=== PATIENT | female | born 1975 | race Caucasian/White ===

== ENCOUNTER → 2017-02-13 | Outpatient (CLI) | payer BC, OTHER ==
[~2017-02-13] MED LIST: ADVI200C5 PO; LEVO2TA PO; STUACAP PO; TYLE167L PO; [UNRECOGNIZED DRUG - CODE] PO
--- NOTE | 2017-02-13 09:44 | REP ---
LEFT UPPER QUADRANT ULTRASOUND: Real-time sonographic evaluation of the left upper quadrant is performed. The spleen is normal in size and echotexture with no intrinsic abnormality. The spleen measures 9.4 x 8.3 x 3.2 cm. Left kidney measures 10.5 x 5.3 x 5.0 cm with no hydronephrosis. There is a possible calculus in the mid right kidney approximately 7 mm in diameter. IMPRESSION: Normal size of spleen with no splenomegaly. Suspect 7 mm calculus mid left kidney. Signed by Abiel Harmon MD 02/13/2017 03:25 P
== END ==
LOC: M RAD 06:59
PROVIDERS: ATTEND Family Medicine
DX: R10.10 Upper abdominal pain, unspecified (principal)

== ENCOUNTER → 2017-03-03 | Outpatient (REF) | payer OTHER | LOC: M SMT 12:36 | PROVIDERS: ATTEND Nurse Practitioner Family | DX: R31.9 Hematuria, unspecified (principal) ==

== ENCOUNTER → 2018-09-02 | Outpatient (REF) | payer OTHER | LOC: M LAB REF 13:50 | DX: Z12.4 Encounter for screening for malignant neoplasm of cervix (principal) ==

== ENCOUNTER → 2019-02-21 | Outpatient (REF) | LOC: M LAB 09:36 | PROVIDERS: ATTEND Nurse Practitioner Adult Health | DX: Z00.00 Encounter for general adult medical examination without abnormal findings (principal) ==

== ENCOUNTER 2019-06-01 15:27 | Emergency (ER) | payer BC, OTHER ==
[2019-06-01] MEDS ORDERED: VERA360C (15:39)
[2019-06-01] MEDS ORDERED: HYDR25TAB (15:39)
[2019-06-01] MEDS ORDERED: OMEP-218 (15:39)
[2019-06-01] MEDS ORDERED: BREO1INH3 (15:39)
[2019-06-01] MEDS ORDERED: LEVO175T2 (15:39)
[2019-06-01] MEDS ORDERED: ADACEL/BOOSTRIX VACCINE (DIPHTH/PERTUSS/ACELL/TETANUS)0.5ML SYR (90715) IM ONE (16:45)
[2019-06-01] MEDS ORDERED: LIDOCAINE W/EPINEPHRINE 1% 20ML VIAL SC ONE (16:45)
--- NOTE | 2019-06-01 17:46 | REP ---
Left knee: Four views. History: Trauma. Laceration on the medial side. Findings: The four views of the left knee are presented. No sunrise view is included. There is soft tissue deficit and irregularity consistent with a fairly large laceration a long the medial aspect of the upper calf just below the knee joint line. There is no opaque foreign body noted. No fracture is. No evidence of intra-articular gas. Impression: Soft tissue laceration injury. No fracture or opaque foreign body seen. Electronically Signed by Kyrie Strong MD 06/01/2019 06:15 P
[2019-06-01] MEDS ORDERED: KEFL500C17 PO (18:59)
[2019-06-01 20:38] VITALS: BP 132/70
== END 2019-06-01 20:39 | disposition home or self-care (01) ==
LOC: M ED 15:27 → EDBD 15:27 → M ED 20:39
DX: S81.012A Laceration without foreign body, left knee, initial encounter (principal); X58.XXXA Exposure to other specified factors, initial encounter; Y92.099 Unspecified place in other non-institutional residence as the place of occurrence of the external cause; Y93.89 Activity, other specified; Y99.9 Unspecified external cause status; Z79.899 Other long term (current) drug therapy; Z91.018 Allergy to other foods; Z91.013 Allergy to seafood

== ENCOUNTER → 2020-08-27 | Outpatient (REF) | payer OTHER, BC ==
[~2020-08-27] MED LIST changes: +BREO1INH3; +HYDR25TAB; +KEFL500C17 PO; +LEVO175T2; +OMEP-218; +VERA360C
== END ==
LOC: M LAB REF 16:23
PROVIDERS: ATTEND Physician Assistant
DX: N39.0 Urinary tract infection, site not specified (principal)

== ENCOUNTER → 2021-08-21 | Outpatient (CLI) | payer BC, OTHER ==
[~2021-08-21] MED LIST changes: +HYDR-3490; -HYDR25TAB; -LEVO175T2; +LEVO175T2 PO
== END ==
LOC: M LABSMTC 11:43
PROVIDERS: ATTEND Anesthesiology
DX: Z01.818 Encounter for other preprocedural examination (principal); Z11.52 Encounter for screening for COVID-19

== ENCOUNTER 2021-08-26 09:57 | Day surgery (SDC) | payer BC, OTHER ==
[~2021-08-26] VITALS: Ht 157.5 cm; Wt 80.3 kg
[~2021-08-26 09:57] MED LIST changes: +CYCLOPENTOLATE 1% OPHTH SOLN 2 ML BTL OS SCH; +FLURBIPROFEN 0.03% OPHTH SOLN 2.5 ML OS SCH; +LIDOCAINE 1% SDV 5ML VIAL As Ordered ONE; +LR 1,000 ML IV SCH; +PHENYLEPHRINE 2.5% OPHTH SOL 2ML OS SCH
--- OUTSIDE RECORDS SUMMARY | 2021-08-26 10:03 | CCD | Continuity of Care Document ---
Author Author Josephine URIBE M.D. Organization Unknown Address [address] [address] Phone [phone] Problems Active Problems Provider Date Benign essential hypertension Edgard Uribe M.D. Onset: 02/01/2014 Hypothyroidism Edgard Uribe M.D. Onset: 4 Asthma without status asthmaticus Edgard Uribe M.D. On set: 02/01/2014 Allergic rhinitis Edgard Uribe M.D. Onset: 4 Depressive disorder Edgard Uribe M.D. Onset: 4 Essential hypertension Edgard Uribe M.D. Onset: 2014 Social History Type Date Description Comments Sex Unknown ETOH Use Consumes 4 glasses of wine per w [place] Tobacco Use Start: Unknown End: Unknown Patient is a former smoker Recreational Drug Use Denies Drug Use Allergies and adverse reactions Active Allergies Criticality Reaction | Severity Comments Date Seasonal Unable to assess criticality 02/01/2014 Medications Active Medications SIG Qnty Indications Ordering Provide r Date Albuterol Sulfate HFA 108(90Base) mcg/Act Aerosol Inhale 2 Puffs By Mouth Four Times A Day as Needed 8.5units Edgard Uribe M.D. 10/29/2020 Triamcinolone Acetonide 0.5% Cream apply to the low back twice a day x 10 days 45gm Edgard Uribe M.D. 08/03/2020 Levothyroxine Sodium 150mcg Tablet s take one tablet by mouth qd 90tabs Edgard Uribe M.D. 1 12/08/[address] Take One Capsule By Mouth Every Morning 90caps Edgard Uribe M.D. 02/09/2019 Hydrochlorothiazide 25mg Tablets Take One Tablet By Mouth Every Day 30tabs Rony, Edgard H, M.D . 01/10/2019 Verapamil HCL ER 360mg Caps ER 24H R Take One Capsule By Mouth Every Day 30Edgard Turk M.D. 03/09/2018 Breo Ellipta 200-25mcg/Inh Aerosol Inhale One puff By Mouth Every Day 60unEdgard Iglesias M .D. 01/27/2017 Albuterol Sulfate (2 .5mg/3ML) 0.083% Nebulizer Inhale 1 Vial Every 4 Hours as Needed By Nebulizer 75unEdgard Iglesias M.D. 11/19/2016 Clobetasol Propionate 0.05% Cream Apply To Both Hands Lightly Two Times A Day 45Tracy Teran M.D. 10/01/2016 Epipen 2-Estrada 0.3mg/0 .3ML Solution Auto-Inject inject as directed 1unEdgard Iglesias M.D . 01/14/2016 Licorice Deglycyrrhizinated Powde r as dirtected for gerd/nausea Unknown History Medications Effexor XR 75mg Caps ER 24HR 1 by mouth every day 90Edgard Turk M.D. 04/19/20 21 - 08/16/2021 Immunizations Description No Information Available Vital Signs Date Vital Result Comment 08/16/2021 4:00pm BP Systolic 114 mmHg BP Diastolic 74 mmHg Body Temperature 98.1 F Heart Rate 64 /min Respiratory Rate 16 /min Height 62 inches 5'2" Weight 179.00 lb [place] Body Weight 110 lb BMI (Body Mass Index) 32.7 kg/m2 O2 % BldC Oximetry 97 % 04/19/2021 2:56pm BP Systolic 110 mmHg BP Diastolic 84 mmHg Body Temperature 98.3 F Heart Rate 72 /min Respiratory Rate 14 /min Height 62 inches 5'2" Weight 166.00 lb [place] Body Weight 110 lb BMI (Body Mass Index) 30.4 kg/m2 O2 % BldC Oximetry 96 % Results Test Acquired Date Facility Test Result H/L Range Note CMP 04/19/2021 [facility] Glu 87 mg/dL 70 - 110 1 BUN 19 mg/dL 8 - 23 Creat 0.8 mg/dL 0.5 - 1.0 BUN/Creatinine Ratio 25.6 Calc Na 135 mmol/L Low 136 - 145 K 3.7 mmol/L 3.5 - 5.1 CL 95.5 mmol/L Low 98.0 - 107.0 Co2 26.5 mmol/L 22.0 - 29.0 CA 9.8 mg/dL 8.6 - 10.2 TP 7.5 g/dL 6.6 - 8.7 Alb 4.9 g/dL High 3.4 - 4.8 A/G Ratio 1.8 Calc Globulin 2.7 Calc Alp 87.0 U/L 35 - 129 Alt (SGPT) 16 U/L 0 - 41 Ast (Sgot) 16 U/L 0 - 40 Tbili 0.23 mg/dL 0.0 - 1.2 Osmolality-Calculated 272.5 Calc Anion Gap 17 mmol/L eGFR 103 # Calc 2 eGFR Non-Afr. Egyptian 89 # Calc 3 Laboratory test finding 04/19/2021 [facility] TSH 1.202 ulU/mL 0.60 - 4.8 1 CHRONIC KIDNEY DISEASE STAGI NG PER NKF: MALE GFR INTERPRETATION: 20-49 YRS: >60 mL/min Normal 50-59 YRS: >56 mL/min Normal 60-69 YRS: >49 mL/min Normal 70-79 YRS: >42 mL/min Normal 80 and above >35 mL/min Normal FEMALE GRF INTERPRETATION: 20-39 YRS: >60 mL/min Normal 40-49 YRS: >58 mL/min Normal 50-59 YRS: >51 mL/min Normal 60-69 YRS: >45 mL/min Normal 70-79 YRS: >39 mL/min Normal 80 and above >32 mL/min Normal 2 CKD-EPI 3 CKD-EPI Procedures Date Code Description Status 08/16/2021 55018 Office/Outpatient Established Mo d MDM 30-39 Min Completed 04/19/2021 53645 Office/Outpatient Established Mo d MDM 30-39 Min Completed Medical Devices Description No Information Available Encounters Type Date Location Provider Dx Diagnosis Office Visit 08/16/2021 4:00p [place] [facility] Edgard Uribe M. D. Z01.810 Encounter for preprocedural cardiovascular examination Office Visit 04/19/2021 2:45p [place] [facility] Edgard Uribe M. D. J45.909 Unspecified asthma, uncomplicated E03.9 Hypothyroidism, unspecified I10 Essential (primary) hyperten ernestina F41.9 Anxiety disorder, unspecifie d Assessments Date Code Description Provider 08/16/2021 Z01.810 Encounter for preprocedural card iovascular examination Edgard Uribe M.D. 04/19/2021 J45.909 Unspecified asthma, uncomplicate d Edgard Uribe M.D. 04/19/2021 E03.9 [facility], [facility] 04/19/2021 I10 Essential (primary) hypertension Edgard Uribe M.D. 04/19/2021 F41.9 Anxiety disorder, unspecified [facility] Plan of Treatment No Information Available Functional Status Description No Information Available Mental Status Description No Information Available Referrals Description No Information Available
--- OUTSIDE RECORDS SUMMARY | 2021-08-26 10:04 | CCD | Continuity of Care Document ---
Author Author Josephine URIBE M.D. Organization Unknown Address [address] [address] Phone [phone] Problems Active Problems Provider Date Benign essential [...] Consumes 4 glasses of wine per w [place] Tobacco Use Start: Unknown End: Unknown Patient [...] Height 62 inches 5'2" Weight 179.00 lb [place] Body Weight 110 lb BMI (Body Mass Index) 32.7 kg/m2 O2 % BldC Oximetry 97 % 04/19/2021 2:56pm BP Systolic 110 mmHg BP Diastolic 84 mmHg Body Temperature 98.3 F Heart Rate 72 /min Respiratory Rate 14 /min Height 62 inches 5'2" Weight 166.00 lb [place] Body Weight 110 lb BMI (Body Mass [...] eGFR 103 # Calc 2 eGFR Non-Afr. Tanzanian 89 # Calc 3 Laboratory test finding [...] CKD-EPI Procedures Date Code Description Status 08/16/2021 18908 Office/Outpatient Established Mo d MDM 30-39 Min Completed 04/19/2021 17925 Office/Outpatient Established Mo d MDM 30-39 Min Completed Medical Devices Description No Information Available Encounters Type Date Location Provider Dx Diagnosis Office Visit 08/16/2021 4:00p [facility] Edgard Uribe M. D. Z01.810 Encounter for preprocedural cardiovascular examination Office Visit 04/19/2021 2:45p [facility] Edgard Uribe M. D. J45.909 Unspecified asthma, uncomplicated E03.9 Hypothyroidism, unspecified I10 Essential (primary) hyperten ernestina F41.9 Anxiety disorder, unspecifie d Assessments Date Code Description Provider 08/16/2021 Z01.810 Encounter for preprocedural card iovascular examination Edgard Uribe M.D. 04/19/2021 J45.909 Unspecified asthma, uncomplicate d Edgard Uribe M.D. 04/19/2021 E03.9 [facility], [facility] 04/19/2021 I10 Essential (primary) hypertension Edgard Uribe M.D. 04/19/2021 F41.9 Anxiety disorder, unspecified [facility] Plan of Treatment No Information Available Functional Status Description No Information Available Mental Status Description No Information Available Referrals Description No Information Available
--- OUTSIDE RECORDS SUMMARY | 2021-08-26 10:04 | CCD | Continuity of Care Document ---
Author Author Josephine URIBE M.D. Organization Unknown Address [address] [address] Phone [phone] Problems Active Problems Provider Date Benign essential [...] Consumes 4 glasses of wine per w [place] Tobacco Use Start: Unknown End: Unknown Patient [...] Height 62 inches 5'2" Weight 179.00 lb [place] Body Weight 110 lb BMI (Body Mass Index) 32.7 kg/m2 O2 % BldC Oximetry 97 % 04/19/2021 2:56pm BP Systolic 110 mmHg BP Diastolic 84 mmHg Body Temperature 98.3 F Heart Rate 72 /min Respiratory Rate 14 /min Height 62 inches 5'2" Weight 166.00 lb [place] Body Weight 110 lb BMI (Body Mass [...] eGFR 103 # Calc 2 eGFR Non-Afr. [place] 89 # Calc 3 Laboratory test finding [...] CKD-EPI Procedures Date Code Description Status 08/16/2021 39866 Office/Outpatient Established Mo d MDM 30-39 Min Completed 04/19/2021 24182 Office/Outpatient Established Mo d MDM 30-39 Min Completed Medical Devices Description No Information Available Encounters Type Date Location Provider Dx Diagnosis Office Visit 08/16/2021 4:00p [facility] Edgard Uribe M. D. Z01.810 Encounter for preprocedural cardiovascular examination Office Visit 04/19/2021 2:45p [facility] Edgard Uribe M. D. J45.909 Unspecified asthma, uncomplicated E03.9 Hypothyroidism, unspecified I10 Essential (primary) hyperten ernestina F41.9 Anxiety disorder, unspecifie d Assessments Date Code Description Provider 08/16/2021 Z01.810 Encounter for preprocedural card iovascular examination Edgard Uribe M.D. 04/19/2021 J45.909 Unspecified asthma, uncomplicate d Edgard Uribe M.D. 04/19/2021 E03.9 [facility], [facility] 04/19/2021 I10 Essential (primary) hypertension Edgard Uribe M.D. 04/19/2021 F41.9 Anxiety disorder, unspecified [facility] Plan of Treatment No Information Available Functional Status Description No Information Available Mental Status Description No Information Available Referrals Description No Information Available
--- OUTSIDE RECORDS SUMMARY | 2021-08-26 10:04 | CCD ---
Author Author [facility] Organization [facility] Address Unknown Phone Unavailable Care Team Providers Care Autism Specialist Name Role Phone Rausch, Yvette LAWN SERVICE MANAGER Unavailable Unavailable Rausch, Yvette LAWN SERVICE MANAGER Unavailable Unavailable Rausch, Yvette LAWN SERVICE MANAGER Unavailable Unavailable Rausch, Yvette LAWN SERVICE MANAGER Unavailable Unavailable Rausch, Yvette LAWN SERVICE MANAGER Unavailable Unavailable Rausch, Yvette LAWN SERVICE MANAGER Unavailable Unavailable Rausch, Yvette LAWN SERVICE MANAGER Unavailable Unavailable Rausch, Yvette LAWN SERVICE MANAGER Unavailable Unavailable Rausch, Yvette LAWN SERVICE MANAGER Unavailable Unavailable Rausch, Yvette LAWN SERVICE MANAGER Unavailable Unavailable Rausch, Yvette LAWN SERVICE MANAGER Unavailable Unavailable Rausch, Yvette LAWN SERVICE MANAGER Unavailable Unavailable Rausch, Yvette LAWN SERVICE MANAGER Unavailable Unavailable Lyle LUKE MD Unavailable Unavailable Lyle LUKE MD Unavailable Unavailable Lyle LUKE MD Unavailable Unavailable Lyle LUKE MD Unavailable Unavailable Lyle LUKE MD Unavailable Unavailable Lyle LUKE MD Unavailable Unavailable Lyle LUKE MD Unavailable Unavailable Lyle LUKE MD Unavailable Unavailable Lyle LUKE MD Unavailable Unavailable Lyle LUKE MD Unavailable Unavailable Lyle LUKE MD Unavailable Unavailable Lyle LUKE MD Unavailable Unavailable Lyle LUKE MD Unavailable Unavailable Lyle LUKE MD Unavailable Unavailable Lyle LUKE MD Unavailable Unavailable Lyle LUKE MD Unavailable Unavailable Lyle LUKE MD Unavailable Unavailable Lyle LUKE MD Unavailable Unavailable Lyle LUKE MD Unavailable Unavailable Lyle LUKE MD Unavailable Unavailable Lyle LUKE MD Unavailable Unavailable Lyle LUKE MD Unavailable Unavailable Lyle LUKE MD Unavailable Unavailable Lyle LUKE MD Unavailable Unavailable Lyle LUKE MD Unavailable Unavailable Lyle LUKE MD Unavailable Unavailable Lyle LUKE MD Unavailable Unavailable Lyle LUKE MD Unavailable Unavailable Lyle LUKE MD Unavailable Unavailable MARLY H YAYO BARROSO Unavailable Unavailable Lyle LUKE MD Unavailable Unavailable MARLY H YAYO BARROSO Unavailable Unavailable MARLY H YAYO BARROSO Unavailable Unavailable Lyle LUKE MD Unavailable Unavailable Lyle LUKE MD Unavailable Unavailable Lyle LUKE MD Unavailable Unavailable Lyle LUKE MD Unavailable Unavailable MARLY H YAYO BARROSO Unavailable Unavailable MARLY H YAYO BARROSO Unavailable Unavailable Lyle LUKE MD Unavailable Unavailable MARLY H YAYO BARROSO Unavailable Unavailable MARLY H YAYO BARROSO Unavailable Unavailable Lyle LUKE MD Unavailable Unavailable Lyle LUKE MD Unavailable Unavailable Lyle LUKE MD Unavailable Unavailable Lyle LUKE MD Unavailable Unavailable Lyle LUKE MD Unavailable Unavailable Lyle LUKE MD Unavailable Unavailable Lyle LUKE MD Unavailable Unavailable Lyle LUKE MD Unavailable Unavailable Lyle LUKE MD Unavailable Unavailable Lyle LUKE MD Unavailable Unavailable Lyle LUKE MD Unavailable Unavailable Lyle LUKE MD Unavailable Unavailable Lyle LUKE MD Unavailable Unavailable Lyle LUKE MD Unavailable Unavailable Lyle LUKE MD Unavailable Unavailable Lyle LUKE MD Unavailable Unavailable Lyle LUKE MD Unavailable Unavailable Lyle LUKE MD Unavailable Unavailable Lyle LUKE MD Unavailable Unavailable Lyle LUKE MD Unavailable Unavailable Lyle LUKE MD Unavailable Unavailable Llye LUKE MD Unavailable Unavailable Lyle LUKE MD Unavailable Unavailable Lyle LUKE MD Unavailable Unavailable Lyle LUKE MD Unavailable Unavailable Lyle LUKE MD Unavailable Unavailable Lyle LUKE MD Unavailable Unavailable Lyle LUKE MD Unavailable Unavailable Lyle LUKE MD Unavailable Unavailable Lyle LUKE MD Unavailable Unavailable Lyle LUKE MD Unavailable Unavailable Lyle LUKE MD Unavailable Unavailable Lyle LUKE MD Unavailable Unavailable Lyle LUKE MD Unavailable Unavailable GUADALUPE, KERMIT PA Unavailable Unavailable GUADALUPE, KERMIT PA Unavailable Unavailable GUADALUPE, KERMIT PA Unavailable Unavailable GUADALUPE, KERMIT PA Unavailable Unavailable GUADALUPE, KERMIT PA Unavailable Unavailable GUADALUPE, KERMIT PA Unavailable Unavailable GUADALUPE, KERMIT PA Unavailable Unavailable GUADALUPE, KERMIT PA Unavailable Unavailable GUADALUPE, KERMIT PA Unavailable Unavailable GUADALUPE, KERMIT PA Unavailable Unavailable GUADALUPE, KERMIT PA Unavailable Unavailable GUADALUPE, KERMIT PA Unavailable Unavailable GUADALUPE, KERMIT PA Unavailable Unavailable GUADALUPE, KERMIT PA Unavailable Unavailable GUADALUPE, KERMIT PA Unavailable Unavailable GUADALUPE, KERMIT PA Unavailable Unavailable GUADALUPE, KERMIT PA Unavailable Unavailable GUADALUPE, KERMIT PA Unavailable Unavailable GUADALUPE, KERMIT PA Unavailable Unavailable GUADALUPE, KERMIT PA Unavailable Unavailable GUADALUPE, KERMIT PA Unavailable Unavailable GUADALUPE, KERMIT PA Unavailable Unavailable GUADALUPE, KERMIT PA Unavailable Unavailable GUADALUPE, KERMIT PA Unavailable Unavailable GUADALUPE, KERMIT PA Unavailable Unavailable GUADALUPE, KERMIT PA Unavailable Unavailable GUADALUPE, KERMIT PA Unavailable Unavailable GUADALUPE, KERMIT PA Unavailable Unavailable GUADALUPE, KERMIT PA Unavailable Unavailable GUADALUPE, KERMIT PA Unavailable Unavailable GUADALUPE, KERMIT PA Unavailable Unavailable GUADALUPE, KERMIT PA Unavailable Unavailable GUADALUPE, KERMIT PA Unavailable Unavailable GUADALUPE, KERMIT PA Unavailable Unavailable GUADALUPE, KERMIT PA Unavailable Unavailable GUADALUPE, KERMIT PA Unavailable Unavailable Re-disclosure Warning The records that you are about to access may contain information from federally-assisted alcohol or drug abuse programs. If such information is present, then the following federally mandated warning applies: This information has been disclosed to you from records protected by federal confidentiality rules (42 CFR part 2). The federal rules prohibit you from making any further disclosure of this information unless further disclosure is expressly permitted by the written consent of the person to whom it pertains or as otherwise permitted by 42 CFR part 2. A general authorization for the release of medical or other information is NOT sufficient for this purpose. The Federal rules restrict any use of the information to criminally investigate or prosecute any alcohol or drug abuse patient.The records that you are about to access may contain highly sensitive health information, the redisclosure of which is protected by Article 27-F of the [facility] Public Health law. If you continue you may have access to information: Regarding HIV / AIDS; Provided by facilities licensed or operated by the [facility] Office of Mental Health; or Provided by the [facility] Office for People With Developmental Disabilities. If such information is present, then the following [facility] mandated warning applies: This information has been disclosed to you from confidential records which are protected by state law. State law prohibits you from making any further disclosure of this information without the specific written consent of the person to whom it pertains, or as otherwise permitted by law. Any unauthorized further disclosure in violation of state law may result in a fine or group home sentence or both. A general authorization for the release of medical or other information is NOT sufficient authorization for further disc losure. Family History Family Member Name Family Member Gender Family Member Status Date o f Status Description Data Source(s) Unknown Unknown Problem [facility] ([facility] mother,father Encounters Encounter Providers Location Date Indications Data Source(s ) Outpatient Attender: YAYO LUKE MD [place] [facility] 04:00:00 PM EDT [facility] ([facility] Outpatient Attender: YAYO LUKE MD [place] [facility] 02:45:00 PM EDT [facility] ([facility] Outpatient Attender: Yvette emmanuel 01/29/2021 10:00:00 AM EDT [facility] ([facility] Outpatient Attender: Yvette emmanuel 08/29/2020 01:45:00 PM EDT [facility] ([facility] Outpatient Attender: KERMIT osman 08/27/2020 01:35:00 PM EDT [facility] ([facility] Outpatient Attender: YAYO LUKE MD [place] 12/2019 02:45:00 PM EDT [facility] ([facility] Outpatient Attender: YAYO LUKE MD [place] 01:45:00 PM EDT [facility] ([facility] Medications Medication Brand Name Start Date Product Form Dose Route Admi nistrative Instructions Pharmacy Instructions Status Indications Reaction Description Data Source(s) 25 mg 08/17/2021 12:00:00 AM EDT tablet 30 TAKE ONE TABLET BY MOUTH EVERY DAY TAKE ONE TABLET BY MOUTH EVERY DAY SOLD: 08/17/2021 [facility] 1 % 08/17/2021 12:00:00 AM EDT drops,suspension 15 INSTILL ONE DROP INTO LEFT EYE FOUR TIMES A DAY BEGINNING AFTER SURGERY INSTILL ONE DROP INTO LEFT EYE FOUR TIMES A DAY BEGINNING AFTER SURGERY SOLD: 08/17/2021 [facility] 360 mg 08/17/2021 12:00:00 AM EDT capsule,ext rel. pellet s 24 hr 30 TAKE ONE CAPSULE BY MOUTH EVERY DAY TAKE ONE CAPSULE BY MOUTH EVERY DAY SOLD: 08/17/2021 [facility] 0.5 % 08/17/2021 12:00:00 AM EDT drops 10 INSTILL ONE DROP INTO LEFT EYE FOUR TIMES A DAY BEGINNING 3 DAYS PRIOR TO SURGERY INSTILL ONE DROP INTO LEFT EYE FOUR TIMES A DAY BEGINNING 3 DAYS PRIOR TO SURGERY SOLD: 08/17/2021 [facility] moxifloxacin 5 MG/ML Ophthalmic Solution 0.5 % MOXIFLOXACIN HCL 08/17/2021 12:00:00 AM EDT drops 3 INSTILL ONE DROP INTO LEFT EYE FOUR TIMES A DAY, START 3 DAYS PRIOR TO SURGERY INSTILL ONE DROP INTO LEFT EYE FOUR TIME S A DAY, START 3 DAYS PRIOR TO SURGERY SOLD: 08/17/2021 [facility] 90 mcg/actuation 08/15/2021 12:00:00 AM EDT HFA aerosol inha ler 8 INHALE 2 PUFFS BY MOUTH FOUR TIMES A DAY NEEDED INHALE 2 PUFFS BY MOUTH FOUR TIMES A DAY NEEDED SOLD: 08/17/2021 [facility] 90 mcg/actuation 05/13/2021 12:00:00 AM EDT HFA aerosol inha ler 8 INHALE 2 PUFFS BY MOUTH FOUR TIMES A DAY NEEDED INHALE 2 PUFFS BY MOUTH FOUR TIMES A DAY NEEDED SOLD: 07/23/2021 [facility] 90 mcg/actuation 05/13/2021 12:00:00 AM EDT HFA aerosol inha ler 8 INHALE 2 PUFFS BY MOUTH FOUR TIMES A DAY NEEDED INHALE 2 PUFFS BY MOUTH FOUR TIMES A DAY NEEDED SOLD: 06/27/2021 [facility] 90 mcg/actuation 05/13/2021 12:00:00 AM EDT HFA aerosol inha ler 8 INHALE 2 PUFFS BY MOUTH FOUR TIMES A DAY NEEDED INHALE 2 PUFFS BY MOUTH FOUR TIMES A DAY NEEDED SOLD: 05/29/2021 [facility] 0.05 % 04/26/2021 12:00:00 AM EDT cream 45 APPLY TO BOTH HANDS LIGHTLY TWO TIMES A DAY APPLY TO BOTH HANDS LIGHTLY TWO TIMES A DAY SOLD: 04/28/2021 [facility] 75 mg 04/20/2021 12:00:00 AM EDT capsule,extended releas e 24hr 90 TAKE ONE CAPSULE BY MOUTH EVERY DAY TAKE ONE CAPSULE BY MOUTH EVERY DAY SOLD: 04/20/2021 [facility] 0.5 % 04/19/2021 12:00:00 AM EDT cream 45 APPLY TO THE LOW BACK TWO TIMES A DAY FOR 10 DAYS APPLY TO THE LOW BACK TWO TIMES A DAY FOR 10 DAYS SOLD : 04/20/2021 [facility] 24 HR venlafaxine 75 MG Extended Release Oral Capsule [Effex or] Effexor XR 04/19/2021 12:00:00 AM EDT ORAL completed [facility] ([facility] 0.5 % 04/19/2021 12:00:00 AM EDT cream 45 APPLY TO THE LOW BACK TWO TIMES A DAY FOR 10 DAYS APPLY TO THE LOW BACK TWO TIMES A DAY FOR 10 DAYS SOLD : 07/13/2021 [facility] 0.5 % 04/19/2021 12:00:00 AM EDT cream 45 APPLY TO THE LOW BACK TWO TIMES A DAY FOR 10 DAYS APPLY TO THE LOW BACK TWO TIMES A DAY FOR 10 DAYS SOLD : 05/29/2021 [facility] 20 mg 02/25/2021 12:00:00 AM EDT capsule,delayed release (DR/EC) 90 TAKE ONE CAPSULE BY MOUTH EVERY MORNING TAKE ONE CAPSULE BY MOUTH EVERY MORNING SOLD: 03/13/2021 [facility] 20 mg 02/25/2021 12:00:00 AM EDT capsule,delayed release (DR/EC) 90 TAKE ONE CAPSULE BY MOUTH EVERY MORNING TAKE ONE CAPSULE BY MOUTH EVERY MORNING SOLD: 06/09/2021 [facility] 30 ACTUAT fluticasone furoate 0.2 MG/ACT UAT / vilanterol 0.025 MG/ACTUAT Dry Powder Inhaler [Breo] 200-25 mcg/dose FLUTICASONE/VILANTEROL 02/11/2021 12:00 :00 AM EDT blister with device 60 INHALE ONE PUFF BY MO UTH EVERY DAY INHALE ONE PUFF BY MOUTH EVERY DAY SOLD: 04/28/2021 [facility] 30 ACTUAT fluticasone furoate 0.2 MG/ACT UAT / vilanterol 0.025 MG/ACTUAT Dry Powder Inhaler [Breo] 200-25 mcg/dose FLUTICASONE/VILANTEROL 02/11/2021 12:00 :00 AM EDT blister with device 60 INHALE ONE PUFF BY MO UTH EVERY DAY INHALE ONE PUFF BY MOUTH EVERY DAY SOLD: 05/29/2021 [facility] 30 ACTUAT fluticasone furoate 0.2 MG/ACT UAT / vilanterol 0.025 MG/ACTUAT Dry Powder Inhaler [Breo] 200-25 mcg/dose FLUTICASONE/VILANTEROL 02/11/2021 12:00 :00 AM EDT blister with device 60 INHALE ONE PUFF BY MO UTH EVERY DAY INHALE ONE PUFF BY MOUTH EVERY DAY SOLD: 08/17/2021 [facility] 30 ACTUAT fluticasone furoate 0.2 MG/ACT UAT / vilanterol 0.025 MG/ACTUAT Dry Powder Inhaler [Breo] 200-25 mcg/dose FLUTICASONE/VILANTEROL 02/11/2021 12:00 :00 AM EDT blister with device 60 INHALE ONE PUFF BY MO UTH EVERY DAY INHALE ONE PUFF BY MOUTH EVERY DAY SOLD: 06/27/2021 [facility] 30 ACTUAT fluticasone furoate 0.2 MG/ACT UAT / vilanterol 0.025 MG/ACTUAT Dry Powder Inhaler [Breo] 200-25 mcg/dose FLUTICASONE/VILANTEROL 02/11/2021 12:00 :00 AM EDT blister with device 60 INHALE ONE PUFF BY MO UTH EVERY DAY INHALE ONE PUFF BY MOUTH EVERY DAY SOLD: 02/16/2021 [facility] 30 ACTUAT fluticasone furoate 0.2 MG/ACT UAT / vilanterol 0.025 MG/ACTUAT Dry Powder Inhaler [Breo] 200-25 mcg/dose FLUTICASONE/VILANTEROL 02/11/2021 12:00 :00 AM EDT blister with device 60 INHALE ONE PUFF BY MO UTH EVERY DAY INHALE ONE PUFF BY MOUTH EVERY DAY SOLD: 03/29/2021 [facility] 90 mcg/actuation 02/05/2021 12:00:00 AM EDT HFA aerosol inha ler 8 INHALE 2 PUFFS BY MOUTH FOUR TIMES A DAY NEEDED INHALE 2 PUFFS BY MOUTH FOUR TIMES A DAY NEEDED SOLD: 02/16/2021 [facility] 90 mcg/actuation 02/05/2021 12:00:00 AM EDT HFA aerosol inha ler 8 INHALE 2 PUFFS BY MOUTH FOUR TIMES A DAY NEEDED INHALE 2 PUFFS BY MOUTH FOUR TIMES A DAY NEEDED SOLD: 03/13/2021 [facility] 90 mcg/actuation 02/05/2021 12:00:00 AM EDT HFA aerosol inha ler 8 INHALE 2 PUFFS BY MOUTH FOUR TIMES A DAY NEEDED INHALE 2 PUFFS BY MOUTH FOUR TIMES A DAY NEEDED SOLD: 04/20/2021 [facility] Albuterol 0.83 MG/ML Inhalant Solution Albuterol Sulfate 0 01/29/2021 12:00:00 AM EDT active [facility] ([facility]) 2.5 mg /3 mL (0.083 %) 01/29/2021 12:00:00 AM EDT solu tion for nebulization 150 INHALE ONE VIAL VIA NEBULIZE R EVERY 4 TO 6 HOURS NEEDED FOR SHORTNESS OF BREATH OR WHEEZE INHALE ONE VIAL VIA NEBULIZER EVERY 4 TO 6 HOURS NEEDED FOR SHORTNESS OF BREATH OR WHEEZE SOLD: 02/16/2021 [facility] 10 mg 01/29/2021 12:00:00 AM EDT tablet 20 TAKE 4 TABLETS ONCE DAILY FOR 2 DAYS, THEN 3 DAILY FOR 2 DAYS, THEN 2 DAILY FOR 2 DAYS, THEN 1 DAILY TAKE 4 TABLETS ONCE DAILY FOR 2 DAYS, THEN 3 DAILY FOR 2 DAYS, THEN 2 DAILY FOR 2 DAYS, THEN 1 DAILY SOLD: 01/29/2021 [facility] Prednisone 10 MG Oral Tablet Prednisone 01/29/2021 12:00:00 AM EDT ORAL completed [facility] ([facility] 360 mg 01/11/2021 12:00:00 AM EST capsule,ext rel. pellet s 24 hr 30 TAKE ONE CAPSULE BY MOUTH EVERY DAY TAKE ONE CAPSULE BY MOUTH EVERY DAY SOLD: 06/27/2021 [facility] 360 mg 01/11/2021 12:00:00 AM EST capsule,ext rel. pellet s 24 hr 30 TAKE ONE CAPSULE BY MOUTH EVERY DAY TAKE ONE CAPSULE BY MOUTH EVERY DAY SOLD: 01/13/2021 [facility] 360 mg 01/11/2021 12:00:00 AM EST capsule,ext rel. pellet s 24 hr 30 TAKE ONE CAPSULE BY MOUTH EVERY DAY TAKE ONE CAPSULE BY MOUTH EVERY DAY SOLD: 02/16/2021 [facility] 360 mg 01/11/2021 12:00:00 AM EST capsule,ext rel. pellet s 24 hr 30 TAKE ONE CAPSULE BY MOUTH EVERY DAY TAKE ONE CAPSULE BY MOUTH EVERY DAY SOLD: 04/28/2021 [facility] 360 mg 01/11/2021 12:00:00 AM EST capsule,ext rel. pellet s 24 hr 30 TAKE ONE CAPSULE BY MOUTH EVERY DAY TAKE ONE CAPSULE BY MOUTH EVERY DAY SOLD: 03/29/2021 [facility] 360 mg 01/11/2021 12:00:00 AM EST capsule,ext rel. pellet s 24 hr 30 TAKE ONE CAPSULE BY MOUTH EVERY DAY TAKE ONE CAPSULE BY MOUTH EVERY DAY SOLD: 05/29/2021 [facility] 0.05 % 12/10/2020 12:00:00 AM EST cream 45 APPLY TO BOTH HANDS LIGHTLY TWO TIMES A DAY APPLY TO BOTH HANDS LIGHTLY TWO TIMES A DAY SOLD: 01/13/2021 [facility] 25 mg 12/10/2020 12:00:00 AM EST tablet 30 TAKE ONE TABLET BY MOUTH EVERY DAY TAKE ONE TABLET BY MOUTH EVERY DAY SOLD: 03/29/2021 [facility] 25 mg 12/10/2020 12:00:00 AM EST tablet 30 TAKE ONE TABLET BY MOUTH EVERY DAY TAKE ONE TABLET BY MOUTH EVERY DAY SOLD: 02/16/2021 [facility] 0.05 % 12/10/2020 12:00:00 AM EST cream 45 APPLY TO BOTH HANDS LIGHTLY TWO TIMES A DAY APPLY TO BOTH HANDS LIGHTLY TWO TIMES A DAY SOLD: 12/14/2020 [facility] 25 mg 12/10/2020 12:00:00 AM EST tablet 30 TAKE ONE TABLET BY MOUTH EVERY DAY TAKE ONE TABLET BY MOUTH EVERY DAY SOLD: 06/27/2021 [facility] 25 mg 12/10/2020 12:00:00 AM EST tablet 30 TAKE ONE TABLET BY MOUTH EVERY DAY TAKE ONE TABLET BY MOUTH EVERY DAY SOLD: 01/13/2021 [facility] 25 mg 12/10/2020 12:00:00 AM EST tablet 30 TAKE ONE TABLET BY MOUTH EVERY DAY TAKE ONE TABLET BY MOUTH EVERY DAY SOLD: 12/14/2020 [facility] 0.05 % 12/10/2020 12:00:00 AM EST cream 45 APPLY TO BOTH HANDS LIGHTLY TWO TIMES A DAY APPLY TO BOTH HANDS LIGHTLY TWO TIMES A DAY SOLD: 03/29/2021 [facility] 25 mg 12/10/2020 12:00:00 AM EST tablet 30 TAKE ONE TABLET BY MOUTH EVERY DAY TAKE ONE TABLET BY MOUTH EVERY DAY SOLD: 05/29/2021 [facility] 0.05 % 12/10/2020 12:00:00 AM EST cream 45 APPLY TO BOTH HANDS LIGHTLY TWO TIMES A DAY APPLY TO BOTH HANDS LIGHTLY TWO TIMES A DAY SOLD: 02/16/2021 [facility] 25 mg 12/10/2020 12:00:00 AM EST tablet 30 TAKE ONE TABLET BY MOUTH EVERY DAY TAKE ONE TABLET BY MOUTH EVERY DAY SOLD: 04/28/2021 [facility] 150 mcg 11/05/2020 12:00:00 AM EST tablet 90 TAKE ONE TABLET BY MOUTH EVERY DAY TAKE ONE TABLET BY MOUTH EVERY DAY SOLD: 11/11/2020 [facility] 90 mcg/actuation 10/29/2020 12:00:00 AM EST HFA aerosol inha ler 8 INHALE 2 PUFFS BY MOUTH FOUR TIMES A DAY NEEDED INHALE 2 PUFFS BY MOUTH FOUR TIMES A DAY NEEDED SOLD: 11/11/2020 [facility] 60 ACTUAT Albuterol 0.09 MG/ACTUAT Metered Dose Inhaler Albu terol Sulfate HFA 10/29/2020 12:00:00 AM EST RESPIRATORY active [facility] ([facility] 90 mcg/actuation 10/29/2020 12:00:00 AM EST HFA aerosol inha ler 8 INHALE 2 PUFFS BY MOUTH FOUR TIMES A DAY NEEDED INHALE 2 PUFFS BY MOUTH FOUR TIMES A DAY NEEDED SOLD: 01/13/2021 [facility] 90 mcg/actuation 10/29/2020 12:00:00 AM EST HFA aerosol inha ler 8 INHALE 2 PUFFS BY MOUTH FOUR TIMES A DAY NEEDED INHALE 2 PUFFS BY MOUTH FOUR TIMES A DAY NEEDED SOLD: 12/14/2020 [facility] 200 mg 08/29/2020 12:00:00 AM EDT tablet 6 TAKE ONE TABLET BY MOUTH THREE TIMES A DAY NEEDED FOR URINARY SYMPTOMS FOR 2 DAYS TAKE ONE TABLET BY MOUTH THREE TIMES A DAY NEEDED FOR URINARY SYMPTOMS FOR 2 DAYS SOLD: 08/29/2020 [facility] Cephalexin 500 MG Oral Capsule CEPHALEXIN 08/29/2020 12:00:00 AM EDT capsule 14 TAKE ONE CAPSULE BY MOUTH TWICE A DAY FOR 7 DAYS TAKE ONE CAPSULE BY MOUTH TWICE A DAY FOR 7 DAYS SOLD: 08/29/2020 [facility] Cephalexin 500 MG Oral Capsule Cephalexin 08/29/2020 12:00:00 AM EDT ORAL completed [facility] ([facility]) Phenazopyridine hydrochloride 200 MG Delayed Release O ral Tablet Phenazopyridine HCL 08/29/2020 12:00:00 AM EDT ORAL completed [facility] ([facility] 200 mg 08/27/2020 12:00:00 AM EDT tablet 6 TAKE ONE TABLET BY MOUTH THREE TIMES A DAY AFTER MEALS FOR 2 DAYS TAKE ONE TABLET BY MOUTH THREE TIMES A D AY AFTER MEALS FOR 2 DAYS SOLD: 08/27/2020 [facility] NITROFURANTOIN, MACROCRYSTALS 25 MG / Ni trofurantoin, Monohydrate 75 MG Oral Capsule Nitrofurantoin Monohyd Macro 08/27/2020 12:00:00 AM EDT ORAL completed [facility] ([facility]) Phenazopyridine hydrochloride 200 MG Oral Tablet [Pyridium] Pyridium 08/27/2020 12:00:00 AM EDT ORAL completed [facility] ([facility]) 100 mg 08/27/2020 12:00:00 AM EDT capsule 10 TAKE ONE CAPSULE BY MOUTH TWICE A DAY FOR 5 DAYS TAKE ONE CAPSULE BY MOUTH TWICE A DAY FOR 5 DAYS SOLD: 08/27/2020 [facility] 0.05 % 08/06/2020 12:00:00 AM EDT cream 45 APPLY TO BOTH HANDS LIGHTLY TWO TIMES A DAY APPLY TO BOTH HANDS LIGHTLY TWO TIMES A DAY SOLD: 10/09/2020 [facility] 0.05 % 08/06/2020 12:00:00 AM EDT cream 45 APPLY TO BOTH HANDS LIGHTLY TWO TIMES A DAY APPLY TO BOTH HANDS LIGHTLY TWO TIMES A DAY SOLD: 08/09/2020 [facility] 0.05 % 08/06/2020 12:00:00 AM EDT cream 45 APPLY TO BOTH HANDS LIGHTLY TWO TIMES A DAY APPLY TO BOTH HANDS LIGHTLY TWO TIMES A DAY SOLD: 09/08/2020 [facility] 0.05 % 08/06/2020 12:00:00 AM EDT cream 45 APPLY TO BOTH HANDS LIGHTLY TWO TIMES A DAY APPLY TO BOTH HANDS LIGHTLY TWO TIMES A DAY SOLD: 11/11/2020 [facility] Triamcinolone Acetonide 5 MG/ML Topical Cream Triamcinolone Acetonide 08/03/2020 12:00:00 AM EDT active [facility] ([facility] 0.5 % 08/03/2020 12:00:00 AM EDT cream 45 APPLY TO LOW BACK TWO TIMES A DAY FOR 10 DAYS APPLY TO LOW BACK TWO TIMES A DAY FOR 10 DAYS SOLD: 08/09/2020 [facility] 0.5 % 08/03/2020 12:00:00 AM EDT cream 45 APPLY TO LOW BACK TWO TIMES A DAY FOR 10 DAYS APPLY TO LOW BACK TWO TIMES A DAY FOR 10 DAYS SOLD: 09/08/2020 [facility] 0.5 % 08/03/2020 12:00:00 AM EDT cream 45 APPLY TO LOW BACK TWO TIMES A DAY FOR 10 DAYS APPLY TO LOW BACK TWO TIMES A DAY FOR 10 DAYS SOLD: 02/24/2021 [facility] 0.5 % 08/03/2020 12:00:00 AM EDT cream 45 APPLY TO LOW BACK TWO TIMES A DAY FOR 10 DAYS APPLY TO LOW BACK TWO TIMES A DAY FOR 10 DAYS SOLD: 10/04/2020 [facility] 150 mcg 07/26/2020 12:00:00 AM EDT tablet 90 TAKE ONE TABLET BY MOUTH EVERY DAY TAKE ONE TABLET BY MOUTH EVERY DAY SOLD: 08/09/2020 [facility] 90 mcg/actuation 07/24/2020 12:00:00 AM EDT HFA aerosol inha ler 8 INHALE 2 PUFFS BY MOUTH FOUR TIMES A DAY NEEDED INHALE 2 PUFFS BY MOUTH FOUR TIMES A DAY NEEDED SOLD: 10/04/2020 [facility] 200 ACTUAT Albuterol 0.09 MG/ACTUAT Metered Dose Inhaler [Pr oAir] Proair HFA 07/24/2020 12:00:00 AM EDT RESPIRATORY active [facility] ([facility] 90 mcg/actuation 07/24/2020 12:00:00 AM EDT HFA aerosol inha ler 8 INHALE 2 PUFFS BY MOUTH FOUR TIMES A DAY NEEDED INHALE 2 PUFFS BY MOUTH FOUR TIMES A DAY NEEDED SOLD: 08/09/2020 [facility] 90 mcg/actuation 07/24/2020 12:00:00 AM EDT HFA aerosol inha ler 8 INHALE 2 PUFFS BY MOUTH FOUR TIMES A DAY NEEDED INHALE 2 PUFFS BY MOUTH FOUR TIMES A DAY NEEDED SOLD: 09/08/2020 [facility] 2.5 mg /3 mL (0.083 %) 07/18/2020 12:00:00 AM EDT solu tion for nebulization 75 INHALE 1 VIAL EVERY 4 HOURS NEEDED BY NEBULIZER INHALE 1 VIAL EVERY 4 HOURS NEEDED BY NEBULIZER SOLD: 08/31/2020 [facility] 2.5 mg /3 mL (0.083 %) 07/18/2020 12:00:00 AM EDT solu tion for nebulization 75 INHALE 1 VIAL EVERY 4 HOURS NEEDED BY NEBULIZER INHALE 1 VIAL EVERY 4 HOURS NEEDED BY NEBULIZER SOLD: 07/23/2020 [facility] 360 mg 07/03/2020 12:00:00 AM EDT capsule,ext rel. pellet s 24 hr 30 TAKE ONE CAPSULE BY MOUTH EVERY DAY TAKE ONE CAPSULE BY MOUTH EVERY DAY SOLD: 09/08/2020 [facility] 360 mg 07/03/2020 12:00:00 AM EDT capsule,ext rel. pellet s 24 hr 30 TAKE ONE CAPSULE BY MOUTH EVERY DAY TAKE ONE CAPSULE BY MOUTH EVERY DAY SOLD: 12/14/2020 [facility] 360 mg 07/03/2020 12:00:00 AM EDT capsule,ext rel. pellet s 24 hr 30 TAKE ONE CAPSULE BY MOUTH EVERY DAY TAKE ONE CAPSULE BY MOUTH EVERY DAY SOLD: 10/09/2020 [facility] 360 mg 07/03/2020 12:00:00 AM EDT capsule,ext rel. pellet s 24 hr 30 TAKE ONE CAPSULE BY MOUTH EVERY DAY TAKE ONE CAPSULE BY MOUTH EVERY DAY SOLD: 08/09/2020 [facility] 360 mg 07/03/2020 12:00:00 AM EDT capsule,ext rel. pellet s 24 hr 30 TAKE ONE CAPSULE BY MOUTH EVERY DAY TAKE ONE CAPSULE BY MOUTH EVERY DAY SOLD: 07/09/2020 [facility] 360 mg 07/03/2020 12:00:00 AM EDT capsule,ext rel. pellet s 24 hr 30 TAKE ONE CAPSULE BY MOUTH EVERY DAY TAKE ONE CAPSULE BY MOUTH EVERY DAY SOLD: 11/11/2020 [facility] 25 mg 04/26/2020 12:00:00 AM EDT tablet 30 TAKE ONE TABLET BY MOUTH EVERY DAY TAKE ONE TABLET BY MOUTH EVERY DAY SOLD: 10/09/2020 [facility] 25 mg 04/26/2020 12:00:00 AM EDT tablet 30 TAKE ONE TABLET BY MOUTH EVERY DAY TAKE ONE TABLET BY MOUTH EVERY DAY SOLD: 08/09/2020 [facility] 25 mg 04/26/2020 12:00:00 AM EDT tablet 30 TAKE ONE TABLET BY MOUTH EVERY DAY TAKE ONE TABLET BY MOUTH EVERY DAY SOLD: 07/09/2020 [facility] 25 mg 04/26/2020 12:00:00 AM EDT tablet 30 TAKE ONE TABLET BY MOUTH EVERY DAY TAKE ONE TABLET BY MOUTH EVERY DAY SOLD: 09/08/2020 [facility] 25 mg 04/26/2020 12:00:00 AM EDT tablet 30 TAKE ONE TABLET BY MOUTH EVERY DAY TAKE ONE TABLET BY MOUTH EVERY DAY SOLD: 11/11/2020 [facility] 175 mcg 04/23/2020 12:00:00 AM EDT tablet 90 TAKE ONE TABLET BY MOUTH EVERY DAY TAKE ONE TABLET BY MOUTH EVERY DAY SOLD: 08/09/2020 [facility] 0.05 % 03/27/2020 12:00:00 AM EDT cream 45 APPLY TO BOTH HANDS LIGHTLY TWO TIMES A DAY APPLY TO BOTH HANDS LIGHTLY TWO TIMES A DAY SOLD: 07/09/2020 [facility] 20 mg 02/07/2020 12:00:00 AM EDT capsule,delayed release (DR/EC) 90 TAKE ONE CAPSULE BY MOUTH EVERY MORNING TAKE ONE CAPSULE BY MOUTH EVERY MORNING SOLD: 08/27/2020 [facility] 20 mg 02/07/2020 12:00:00 AM EDT capsule,delayed release (DR/EC) 90 TAKE ONE CAPSULE BY MOUTH EVERY MORNING TAKE ONE CAPSULE BY MOUTH EVERY MORNING SOLD: 11/29/2020 [facility] 200-25 mcg/dose 01/16/2020 12:00:00 AM EDT blister with devang ce 60 INHALE ONE PUFF BY MOUTH EVERY DAY INHALE ONE PUFF BY MOUTH EVERY DAY SOLD: 10/09/2020 [facility] 200-25 mcg/dose 01/16/2020 12:00:00 AM EDT blister with devang ce 60 INHALE ONE PUFF BY MOUTH EVERY DAY INHALE ONE PUFF BY MOUTH EVERY DAY SOLD: 01/13/2021 [facility] 200-25 mcg/dose 01/16/2020 12:00:00 AM EDT blister with devang ce 60 INHALE ONE PUFF BY MOUTH EVERY DAY INHALE ONE PUFF BY MOUTH EVERY DAY SOLD: 08/09/2020 [facility] 200-25 mcg/dose 01/16/2020 12:00:00 AM EDT blister with devang ce 60 INHALE ONE PUFF BY MOUTH EVERY DAY INHALE ONE PUFF BY MOUTH EVERY DAY SOLD: 07/09/2020 [facility] 200-25 mcg/dose 01/16/2020 12:00:00 AM EDT blister with devang ce 60 INHALE ONE PUFF BY MOUTH EVERY DAY INHALE ONE PUFF BY MOUTH EVERY DAY SOLD: 11/11/2020 [facility] 200-25 mcg/dose 01/16/2020 12:00:00 AM EDT blister with devang ce 60 INHALE ONE PUFF BY MOUTH EVERY DAY INHALE ONE PUFF BY MOUTH EVERY DAY SOLD: 09/08/2020 [facility] 200-25 mcg/dose 01/16/2020 12:00:00 AM EDT blister with devang ce 60 INHALE ONE PUFF BY MOUTH EVERY DAY INHALE ONE PUFF BY MOUTH EVERY DAY SOLD: 12/14/2020 [facility] Insurance Providers Payer name Policy type / Coverage type Policy ID Covered democrat ID Covered democrat's relationship to ivory Policy Ivroy Plan Information [facility] [id number] [facility] [id number] [facility] [id number] [facility] [id number] [facility] O [id number] S [id number] [facility] [id number] SPO [id number] [employer] [place] [id number] SPO [id number] [facility] [id number] Family Dependent [id number] [employer] [id number] S [id number] [employer] [place] [id number] S [id number] [facility] Maintenance Organization (O) [id number] Family Dependent [id number] [facility] [employer] [id number] Family Dependent [id number] [facility] Maintenance Organization (O) [id number] Family Dependent [id number] [facility] [employer] [id number] Family Dependent [id number] EMPIRE ([facility]) O [id number] S [id number] EMPIRE [facility] -[facility] [id number] [facility] [employer] [id number] Family Dependent [id number] [facility] [employer] [id number] Family Depende nt [employer] O [id number] S [id number] [employer] [place] REG DIV [id number] [employer] [id number] HU2 [id number] Problems, Conditions, and Diagnoses No Information Surgeries/Procedures Procedure Description Date Indications Data Source(s) OFFICE OUTPATIENT VISIT 25 MINUTES 08/16/2021 12:00:00 AM EDT [facility] ([facility] OFFICE OUTPATIENT VISIT 25 MINUTES 04/19/2021 12:00:00 AM EDT [facility] ([facility] Results ID Date Data Source [id number] 08/21/2021 11:55:00 AM EDT [facility] ([facility] Name Value Range Interpretation Code Description Data Monica rce(s) Supporting Document(s) Laboratory test finding (navigational concept) Laboratory test result [facility] ([facility] ASSAY INFORMATION: Real Time RT-PCR NOTE: The COVID-19 assay has been cleared by the U.S. Food and Drug Administration under the Emergency Use Authorization (EUA). [facility] and [facility] are designated as high complexity laboratories by the Clinical Laboratory Improvement Amendments of 1988(CLIA) and are qualified to perform this test. Not Detected ID Date Data Source [id number] 04/19/2021 03:02:00 PM EDT [facility] ([facility] Name Value Range Interpretation Code Description Data Monica rce(s) Supporting Document(s) Thyrotropin [Units/volume] in Serum or Plasma 1.202 ulU/mL 0.60-4.8 [facility] ([facility] ID Date Data Source [id number] 04/19/2021 03:02:00 PM EDT [facility] ([facility] Name Value Range Interpretation Code Description Data Monica rce(s) Supporting Document(s) Glu 87 mg/dL 70-110 [facility] ([facility] CHRONIC KIDNEY DISEASE STAGING PER NKF: MALE GFR INTERPRETATION: 20-49 YRS: [...] Normal 80 and above >32 mL/min Normal BUN 19 mg/dL 8-23 [facility] ([facility] CHRONIC KIDNEY DISEASE STAGING PER NKF: MALE GFR INTERPRETATION: 20-49 YRS: [...] Normal 80 and above >32 mL/min Normal BUN/Creatinine Ratio 25.6 Calc [facility] ([facility] CHRONIC KIDNEY DISEASE STAGING PER NKF: MALE GFR INTERPRETATION: 20-49 YRS: [...] Normal 80 and above >32 mL/min Normal Creat 0.8 mg/dL 0.5-1.0 [facility] ([facility] CHRONIC KIDNEY DISEASE STAGING PER NKF: MALE GFR INTERPRETATION: 20-49 YRS: [...] Normal 80 and above >32 mL/min Normal K 3.7 mmol/L 3.5-5.1 [facility] ([facility] CHRONIC KIDNEY DISEASE STAGING PER NKF: MALE GFR INTERPRETATION: 20-49 YRS: [...] Normal 80 and above >32 mL/min Normal CL 95.5 mmol/L 98.0-107.0 Below low normal [facility] ([facility] CHRONIC KIDNEY DISEASE STAGING PER NKF: MALE GFR INTERPRETATION: 20-49 YRS: [...] Normal 80 and above >32 mL/min Normal Na 135 mmol/L 136-145 Below low normal [facility] ( [facility] CHRONIC KIDNEY DISEASE STAGING PER NKF: MALE GFR INTERPRETATION: 20-49 YRS: [...] Normal 80 and above >32 mL/min Normal CA 9.8 mg/dL 8.6-10.2 [facility] ([facility] CHRONIC KIDNEY DISEASE STAGING PER NKF: MALE GFR INTERPRETATION: 20-49 YRS: [...] Normal 80 and above >32 mL/min Normal Co2 26.5 mmol/L 22.0-29.0 [facility] ([facility] CHRONIC KIDNEY DISEASE STAGING PER NKF: MALE GFR INTERPRETATION: 20-49 YRS: [...] Normal 80 and above >32 mL/min Normal Alb 4.9 g/dL 3.4-4.8 Above high normal [facility] ([facility] CHRONIC KIDNEY DISEASE STAGING PER NKF: MALE GFR INTERPRETATION: 20-49 YRS: [...] Normal 80 and above >32 mL/min Normal TP 7.5 g/dL 6.6-8.7 [facility] ([facility] CHRONIC KIDNEY DISEASE STAGING PER NKF: MALE GFR INTERPRETATION: 20-49 YRS: [...] Normal 80 and above >32 mL/min Normal Globulin 2.7 Calc [facility] ([facility] CHRONIC KIDNEY DISEASE STAGING PER NKF: MALE GFR INTERPRETATION: 20-49 YRS: [...] Normal 80 and above >32 mL/min Normal Alp 87.0 U/L 35-129 [facility] ([facility] CHRONIC KIDNEY DISEASE STAGING PER NKF: MALE GFR INTERPRETATION: 20-49 YRS: [...] Normal 80 and above >32 mL/min Normal A/G Ratio 1.8 Calc [facility] ([facility] CHRONIC KIDNEY DISEASE STAGING PER NKF: MALE GFR INTERPRETATION: 20-49 YRS: [...] Normal 80 and above >32 mL/min Normal Ast (Sgot) 16 U/L 0-40 [facility] ([facility] CHRONIC KIDNEY DISEASE STAGING PER NKF: MALE GFR INTERPRETATION: 20-49 YRS: [...] Normal 80 and above >32 mL/min Normal Alt (SGPT) 16 U/L 0-41 [facility] ([facility] CHRONIC KIDNEY DISEASE STAGING PER NKF: MALE GFR INTERPRETATION: 20-49 YRS: [...] Normal 80 and above >32 mL/min Normal Anion Gap 17 mmol/L [facility] ([facility] CHRONIC KIDNEY DISEASE STAGING PER NKF: MALE GFR INTERPRETATION: 20-49 YRS: [...] Normal 80 and above >32 mL/min Normal Tbili 0.23 mg/dL 0.0-1.2 [facility] ([facility] [place] CHRONIC KIDNEY DISEASE STAGING PER NKF: MALE GFR INTERPRETATION: 20-49 YRS: [...] Normal 80 and above >32 mL/min Normal Osmolality-Calculated 272.5 Calc MED ENT ([facility] CHRONIC KIDNEY DISEASE STAGING PER NKF: MALE GFR INTERPRETATION: 20-49 YRS: [...] Normal 80 and above >32 mL/min Normal eGFR Non-Afr. Sammarinese 89 # [facility] ([facility] CHRONIC KIDNEY DISEASE STAGING PER NKF: MALE GFR INTERPRETATION: 20-49 YRS: [...] Normal 80 and above >32 mL/min Normal eGFR 103 # [facility] ( [facility] CHRONIC KIDNEY DISEASE STAGING PER NKF: MALE GFR INTERPRETATION: 20-49 YRS: [...] Normal 80 and above >32 mL/min Normal ID Date Data Source [id number] 08/27/2020 02:25:00 PM EDT [facility] ([facility]) Name Value Range Interpretation Code Description Data Monica rce(s) Supporting Document(s) Bacteria identified in Urine by Culture Laboratory test result [facility] ([facility]) <content>FULL REPORT IN LAB NOTES ([facility] a nd [facility]).</content>
<content></content>
<content>ORGANISM 1: ESCHERICHIA COLI</content>
<content></content>
<content>COLONY COUNT > 100,000</content>
<content></content>
<content></content>
<content>O RGANISM 1: ESCHERICHIA COLI</content>
<content></content>
<content> ESCHERICHIA COLI: REACTION</content>
<content>TRIMETHOPRIM/SULFAMETHOXAZOLE IV 160mg TMP & 800mg SMXq6h <=20 S</content>
<content> TRIMETHOPRIM/SULFAMETHOXAZOLE PO Bactrim DS Bid <=20 S</content>
<content>AMPICILLIN IV 500mg q6h <=2 S</content>
<content>AMPICILLIN PO 500mg q6h fasting <=2 S</content>
<content>GENTAMICIN IV 80mg q8h <=1 S</content>
<content>NITROFURANTOIN PO 100mg BID <=16 S</content>
<content>CEFAZOLIN IV 1gm q8h <=4 S</content>
<content>LEVOFLOXACIN IV 500mg qd <=0.12 S</content>
<content>LEVOFLOXACIN PO 250mg qd <=0.12 S</content>
<content>LEVOFLOXACIN PO 500mg qd <=0.12 S</content>
<content>TOBRAMYCIN IV 80mg q8h <=1 S</content>
<content> CEFTRIAXONE IV 1gm q24h <=1 S</content>
<content>CEFTAZIDIME IV 1gm q8h <=1 S</content>
<content>AMPICILLIN/SULBACTAM IV 1.5g q6h <=2 S</content>
<content>PIPERACILLIN/TAZOBACTAM IV 2.25 gm q6h <=4 S</content>
<content>AZTREONAM IV 1gm q8h <=1 S</content>
<content>ERTAPENEM IV 1gm qd <=0.5 S</content>
<content> MEROPENEM IV 1 gm q8h <=0.25 S</content>
<content>MEROPENEM IV 500 mg q8h <=0.25 S</content>
<content>TIGECYCLINE IV 50mg q12h <=0.5 S</content>
<content>CEFEPIME IV 1 gm q12h <=1 S</content>
<content>CEFEPIME IV 2 gm q12h <=1 S</content>
<content>EXTD BRD SPCTRM BETA LACTAMASE IV NEGATIVE FOR ESBL</content>
<content></content> ID Date Data Source [id number] 08/03/2020 02:58:00 PM EDT [facility] ([facility] Name Value Range Interpretation Code Description Data Monica rce(s) Supporting Document(s) Hemoglobin A1c/Hemoglobin.total in Blood 5.2 % 4.50-6.20 [facility]O ([facility] ID Date Data Source [id number] 08/03/2020 02:58:00 PM EDT [facility] ([facility] Name Value Range Interpretation Code Description Data Monica rce(s) Supporting Document(s) Glu 86 mg/dL 70-110 [facility] ([facility] CHRONIC KIDNEY DISEASE STAGING PER NKF: MALE GFR INTERPRETATION: 20-49 YRS: [...] Normal 80 and above >32 mL/min Normal BUN 17 mg/dL 8-23 [facility] ([facility] CHRONIC KIDNEY DISEASE STAGING PER NKF: MALE GFR INTERPRETATION: 20-49 YRS: [...] Normal 80 and above >32 mL/min Normal Creat 0.6 mg/dL 0.5-1.0 [facility] ([facility] CHRONIC KIDNEY DISEASE STAGING PER NKF: MALE GFR INTERPRETATION: 20-49 YRS: [...] Normal 80 and above >32 mL/min Normal BUN/Creatinine Ratio 26.6 CALC [facility] ([facility] CHRONIC KIDNEY DISEASE STAGING PER NKF: MALE GFR INTERPRETATION: 20-49 YRS: [...] Normal 80 and above >32 mL/min Normal Na 133 mmol/L 136-145 Below low normal [facility] ( [facility] CHRONIC KIDNEY DISEASE STAGING PER NKF: MALE GFR INTERPRETATION: 20-49 YRS: [...] Normal 80 and above >32 mL/min Normal CL 97.8 mmol/L 98.0-107.0 Below low normal [facility] ([facility] CHRONIC KIDNEY DISEASE STAGING PER NKF: MALE GFR INTERPRETATION: 20-49 YRS: [...] Normal 80 and above >32 mL/min Normal K 3.5 mmol/L 3.5-5.1 [facility] ([facility] CHRONIC KIDNEY DISEASE STAGING PER NKF: MALE GFR INTERPRETATION: 20-49 YRS: [...] Normal 80 and above >32 mL/min Normal TP 7.2 g/dL 6.6-8.7 [facility] ([facility] CHRONIC KIDNEY DISEASE STAGING PER NKF: MALE GFR INTERPRETATION: 20-49 YRS: [...] Normal 80 and above >32 mL/min Normal CA 9.9 mg/dL 8.6-10.2 [facility] CHRONIC KIDNEY DISEASE STAGING PER NKF: MALE GFR INTERPRETATION: 20-49 YRS: [...] Normal 80 and above >32 mL/min Normal Co2 22.3 mmol/L 22.0-29.0 [facility] CHRONIC KIDNEY DISEASE STAGING PER NKF: MALE GFR INTERPRETATION: 20-49 YRS: [...] Normal 80 and above >32 mL/min Normal Alb 4.5 g/dL 3.4-4.8 [facility] ([facility] CHRONIC KIDNEY DISEASE STAGING PER NKF: MALE GFR INTERPRETATION: 20-49 YRS: [...] Normal 80 and above >32 mL/min Normal Globulin 2.7 CALC [facility] ([facility] CHRONIC KIDNEY DISEASE STAGING PER NKF: MALE GFR INTERPRETATION: 20-49 YRS: [...] Normal 80 and above >32 mL/min Normal A/G Ratio 1.7 CALC [facility] CHRONIC KIDNEY DISEASE STAGING PER NKF: MALE GFR INTERPRETATION: 20-49 YRS: [...] Normal 80 and above >32 mL/min Normal Alt (SGPT) 128 U/L 0-41 Above high normal [facility] ([facility] CHRONIC KIDNEY DISEASE STAGING PER NKF: MALE GFR INTERPRETATION: 20-49 YRS: [...] Normal 80 and above >32 mL/min Normal Alp 74.8 U/L 35-129 [facility] CHRONIC KIDNEY DISEASE STAGING PER NKF: MALE GFR INTERPRETATION: 20-49 YRS: [...] Normal 80 and above >32 mL/min Normal Tbili 0.18 mg/dL 0.0-1.2 [facility] CHRONIC KIDNEY DISEASE STAGING PER NKF: MALE GFR INTERPRETATION: 20-49 YRS: [...] Normal 80 and above >32 mL/min Normal Osmolality-Calculated 266.3 CALC MED ENT ([facility] CHRONIC KIDNEY DISEASE STAGING PER NKF: MALE GFR INTERPRETATION: 20-49 YRS: [...] Normal 80 and above >32 mL/min Normal Ast (Sgot) 102 U/L 0-40 Above high normal [facility] ([facility] CHRONIC KIDNEY DISEASE STAGING PER NKF: MALE GFR INTERPRETATION: 20-49 YRS: [...] Normal 80 and above >32 mL/min Normal eGFR 128 # [facility] ( [facility] CHRONIC KIDNEY DISEASE STAGING PER NKF: MALE GFR INTERPRETATION: 20-49 YRS: [...] Normal 80 and above >32 mL/min Normal Anion Gap 16 mmol/L [facility] ([facility] CHRONIC KIDNEY DISEASE STAGING PER NKF: MALE GFR INTERPRETATION: 20-49 YRS: [...] Normal 80 and above >32 mL/min Normal eGFR Non-Afr. Sammarinese 111 # [facility] ([facility] CHRONIC KIDNEY DISEASE STAGING PER NKF: MALE GFR INTERPRETATION: 20-49 YRS: [...] Normal 80 and above >32 mL/min Normal ID Date Data Source [id number] 07/25/2020 01:59:00 PM EDT [facility] ([facility] Name Value Range Interpretation Code Description Data Monica rce(s) Supporting Document(s) Glu 84 mg/dL 70-110 [facility] CHRONIC KIDNEY DISEASE STAGING PER NKF: MALE GFR INTERPRETATION: 20-49 YRS: [...] Normal 80 and above >32 mL/min Normal BUN 15 mg/dL 8- [facility] CHRONIC KIDNEY DISEASE STAGING PER NKF: MALE GFR INTERPRETATION: 20-49 YRS: [...] Normal 80 and above >32 mL/min Normal BUN/Creatinine Ratio 21.7 CALC [facility] ([facility] CHRONIC KIDNEY DISEASE STAGING PER NKF: MALE GFR INTERPRETATION: 20-49 YRS: [...] Normal 80 and above >32 mL/min Normal Creat 0.7 mg/dL 0.5-1.0 [facility] CHRONIC KIDNEY DISEASE STAGING PER NKF: MALE GFR INTERPRETATION: 20-49 YRS: [...] Normal 80 and above >32 mL/min Normal Na 135 mmol/L 136-145 Below low normal [facility] ( [facility] CHRONIC KIDNEY DISEASE STAGING PER NKF: MALE GFR INTERPRETATION: 20-49 YRS: [...] Normal 80 and above >32 mL/min Normal CL 96.4 mmol/L 98.0-107.0 Below low normal [facility] ([facility] CHRONIC KIDNEY DISEASE STAGING PER NKF: MALE GFR INTERPRETATION: 20-49 YRS: [...] Normal 80 and above >32 mL/min Normal K 3.5 mmol/L 3.5-5.1 [facility] ([facility] CHRONIC KIDNEY DISEASE STAGING PER NKF: MALE GFR INTERPRETATION: 20-49 YRS: [...] Normal 80 and above >32 mL/min Normal CA 10.2 mg/dL 8.6-10.2 [facility] ([facility] [place] CHRONIC KIDNEY DISEASE STAGING PER NKF: MALE GFR INTERPRETATION: 20-49 YRS: [...] Normal 80 and above >32 mL/min Normal Co2 24.2 mmol/L 22.0-29.0 [facility] ([facility] CHRONIC KIDNEY DISEASE STAGING PER NKF: MALE GFR INTERPRETATION: 20-49 YRS: [...] Normal 80 and above >32 mL/min Normal TP 7.1 g/dL 6.6-8.7 [facility] ([facility] CHRONIC KIDNEY DISEASE STAGING PER NKF: MALE GFR INTERPRETATION: 20-49 YRS: [...] Normal 80 and above >32 mL/min Normal A/G Ratio 1.5 CALC [facility] ([facility] CHRONIC KIDNEY DISEASE STAGING PER NKF: MALE GFR INTERPRETATION: 20-49 YRS: [...] Normal 80 and above >32 mL/min Normal Alb 4.3 g/dL 3.4-4.8 [facility] CHRONIC KIDNEY DISEASE STAGING PER NKF: MALE GFR INTERPRETATION: 20-49 YRS: [...] Normal 80 and above >32 mL/min Normal Alp 74.9 U/L 35-129 [facility] CHRONIC KIDNEY DISEASE STAGING PER NKF: MALE GFR INTERPRETATION: 20-49 YRS: [...] Normal 80 and above >32 mL/min Normal Globulin 2.8 CALC [facility] ([facility] CHRONIC KIDNEY DISEASE STAGING PER NKF: MALE GFR INTERPRETATION: 20-49 YRS: [...] Normal 80 and above >32 mL/min Normal Alt (SGPT) 78 U/L 0-41 Above high normal [facility] ([facility] CHRONIC KIDNEY DISEASE STAGING PER NKF: MALE GFR INTERPRETATION: 20-49 YRS: [...] Normal 80 and above >32 mL/min Normal Tbili 0.32 mg/dL 0.0-1.2 [facility] ([facility] CHRONIC KIDNEY DISEASE STAGING PER NKF: MALE GFR INTERPRETATION: 20-49 YRS: [...] Normal 80 and above >32 mL/min Normal Ast (Sgot) 104 U/L 0-40 Above high normal [facility] ([facility] CHRONIC KIDNEY DISEASE STAGING PER NKF: MALE GFR INTERPRETATION: 20-49 YRS: [...] Normal 80 and above >32 mL/min Normal Osmolality-Calculated 271.0 CALC MED ENT ([facility] CHRONIC KIDNEY DISEASE STAGING PER NKF: MALE GFR INTERPRETATION: 20-49 YRS: [...] Normal 80 and above >32 mL/min Normal Anion Gap 18 mmol/L [facility] CHRONIC KIDNEY DISEASE STAGING PER NKF: MALE GFR INTERPRETATION: 20-49 YRS: [...] Normal 80 and above >32 mL/min Normal eGFR Non-Afr. Sammarinese 105 # [facility] ( [facility] CKD-EPI eGFR 122 # [facility] ( [facility] CKD-EPI ID Date Data Source [id number] 07/25/2020 01:58:00 PM EDT [facility] ([facility] Name Value Range Interpretation Code Description Data Monica rce(s) Supporting Document(s) Thyrotropin [Units/volume] in Serum or Plasma 3.956 ulU/mL 0.60-4.8 [facility] ( [facility] Procedure Social History Code Duration Value Status Description Data Source(s ) Smoking 08/29/2020 12:00:00 AM EDT Patient is a former smoker completed Patient is a former smoker [facility] ([facility], [facility]) Vital Signs ID Date Data Source [id number] Name Value Range Interpretation Code Description Data Source(s) Respiratory rate 16 /min 16 /min [facility] ( [facility] Body temperature 98.1 [degF] 98.1 [degF] [facility] ([facility] Body weight 179.00 [lb_av] 179.00 [lb_av] MEDEN T ([facility] Heart rate 64 /min 64 /min MED[facility]UARDO ([facility] Wolsey body weight 110 [lb_av] 110 [lb_av] MEDEN T ([facility] Body mass index (BMI) [Ratio] 32.7 kg/m2 32.7 k g/m2 [facility] ([facility] Oxygen saturation in Arterial blood by Pulse oximetry 97 % 97 % [facility] ([facility] Systolic blood pressure 114 mm[Hg] 114 mm[Hg] M EDENT ( [facility] Diastolic blood pressure 74 mm[Hg] 74 mm[Hg] [facility] ([facility] Body height 62 [in_i] 62 [in_i] [facility] ([facility] 5'2" Body temperature 98.3 [degF] 98.3 [degF] [facility] ([facility] Body mass index (BMI) [Ratio] 30.4 kg/m2 30.4 k g/m2 [facility] ([facility] Wolsey body weight 110 [lb_av] 110 [lb_av] MEDEN T ([facility] Oxygen saturation in Arterial blood by Pulse oximetry 96 % 96 % [facility] ([facility] Systolic blood pressure 110 mm[Hg] 110 mm[Hg] M EDENT ([facility] Diastolic blood pressure 84 mm[Hg] 84 mm[Hg] [facility] ([facility] Heart rate 72 /min 72 /min [facility] ([facility] Respiratory rate 14 /min 14 /min [facility] ( [facility] Body height 62 [in_i] 62 [in_i] MED[facility] ([facility] 5'2" Body weight 166.00 [lb_av] 166.00 [lb_av] MEDEN T ([facility] Systolic blood pressure 110 mm[Hg] 110 mm[Hg] M EDENT ([facility], [facility]) Diastolic blood pressure 80 mm[Hg] 80 mm[Hg] MEDENT ([facility], [facility]) Heart rate 84 /min 84 /min [facility] ([facility], [facility]) Respiratory rate 20 /min 20 /min MED[facility] ( [facility], [facility]) Oxygen saturation in Arterial blood by Pulse oximetry 99 % 99 % [facility] ([facility], [facility]) Body temperature 97.7 [degF] 97.7 [degF] MEDENT ([facility], [facility]) Body weight 165.00 [lb_av] 165.00 [lb_av] MEDEN T ([facility], [facility]) Body height 62 [in_i] 62 [in_i] MEDENT ([facility], [facility]) 5'2" Body mass index (BMI) [Ratio] 30.2 kg/m2 30.2 k g/m2 [facility] ([facility], [facility]) Heart rate 66 /min 66 /min [facility] ([facility], [facility]) Respiratory rate 20 /min 20 /min [facility] ( [facility], [facility]) Systolic blood pressure 122 mm[Hg] 122 mm[Hg] M EDENT ([facility], [facility]) Diastolic blood pressure 79 mm[Hg] 79 mm[Hg] [facility] ([facility], [facility]) Oxygen saturation in Arterial blood by Pulse oximetry 99 % 99 % [facility] ([facility], [facility]) Body temperature 98.7 [degF] 98.7 [degF] [facility] ([facility], [facility]) Body weight 165.00 [lb_av] 165.00 [lb_av] MEDEN T ([facility], [facility]) Body height 62 [in_i] 62 [in_i] [facility] ([facility], [facility]) 5'2" Body mass index (BMI) [Ratio] 30.2 kg/m2 30.2 k g/m2 [facility] ([facility], [facility]) Oxygen saturation in Arterial blood by Pulse oximetry 96 % 96 % [facility] ([facility], [facility]) Heart rate 86 /min 86 /min [facility] ([facility], [facility]) Body temperature 98.2 [degF] 98.2 [degF] [facility] ([facility], [facility]) Systolic blood pressure 124 mm[Hg] 124 mm[Hg] M EDENT ([facility], [facility]) Diastolic blood pressure 86 mm[Hg] 86 mm[Hg] [facility] ([facility], [facility]) Respiratory rate 16 /min 16 /min [facility] ( [facility], [facility]) Body weight 165.00 [lb_av] 165.00 [lb_av] MEDEN T ([facility], [facility]) Body height 62 [in_i] 62 [in_i] [facility] ([facility], [facility]) 5'2" Body mass index (BMI) [Ratio] 30.2 kg/m2 30.2 k g/m2 [facility] ([facility], [facility]) [place] body weight 110 [lb_av] 110 [lb_av] MEDEN T ([facility] Systolic blood pressure 114 mm[Hg] 114 mm[Hg] M EDENT ([facility] Diastolic blood pressure 88 mm[Hg] 88 mm[Hg] [facility] ([facility] Body temperature 98.3 [degF] 98.3 [degF] [facility] ([facility] Heart rate 70 /min 70 /min [facility] ([facility] Respiratory rate 16 /min 16 /min [facility] ( [facility] Body height 62 [in_i] 62 [in_i] [facility] ([facility] 5'2" Body weight 166.00 [lb_av] 166.00 [lb_av] [facility] T ([facility] Body mass index (BMI) [Ratio] 30.4 kg/m2 30.4 k g/m2 [facility] ([facility] Oxygen saturation in Arterial blood by Pulse oximetry 95 % 95 % [facility] ([facility] Body temperature 98.5 [degF] 98.5 [degF] [facility] ([facility] Heart rate 70 /min 70 /min [facility] ([facility] Systolic blood pressure 122 mm[Hg] 122 mm[Hg] M EDENT ([facility] Diastolic blood pressure 82 mm[Hg] 82 mm[Hg] [facility] ([facility] Respiratory rate 14 /min 14 /min [facility] ( [facility] Body weight 168.00 [lb_av] 168.00 [lb_av] MEDEN T ([facility] Body height 62 [in_i] 62 [in_i] [facility] ([facility] 5'2" [place] body weight 110 [lb_av] 110 [lb_av] MEDEN T ([facility] Body mass index (BMI) [Ratio] 30.7 kg/m2 30.7 k g/m2 [facility] ([facility] Oxygen saturation in Arterial blood by Pulse oximetry 96 % 96 % [facility] ([facility]
[2021-08-26] MEDS: TETRACAINE 0.5% OPHTH SOLN 4ML OS SCH (11:19)
[2021-08-26] MEDS ORDERED: DUOVISC (0.50ML VISCOAT/0.85ML PROVISC) OPHTH KIT As Ordered ONE (11:47)
[2021-08-26] MEDS ORDERED: fentaNYL 100 MCG/2 ML INJECTION (J3010) As Ordered ONE (12:38)
[2021-08-26] MEDS ORDERED: MIDAZOLAM INJ 2MG/2ML VIAL (J2250 PER 1MG) As Ordered ONE (12:38)
[2021-08-26 13:15] VITALS: BP 127/68
== END 2021-08-26 13:25 | disposition home or self-care (01) ==
LOC: M SDC 09:57
PROVIDERS: ATTEND Ophthalmology
DX: H25.12 Age-related nuclear cataract, left eye (principal); I10 Essential (primary) hypertension; E03.9 Hypothyroidism, unspecified; Z79.899 Other long term (current) drug therapy; J45.909 Unspecified asthma, uncomplicated; Z91.013 Allergy to seafood; Z91.010 Allergy to peanuts
CPT/HCPCS: 66984; J2250; J3010

== ENCOUNTER → 2023-02-16 | Outpatient (CLI) | payer BC, OTHER ==
[~2023-02-16] MED LIST changes: -CYCLOPENTOLATE 1% OPHTH SOLN 2 ML BTL OS SCH; -FLURBIPROFEN 0.03% OPHTH SOLN 2.5 ML OS SCH; -LIDOCAINE 1% SDV 5ML VIAL As Ordered ONE; -LR 1,000 ML IV SCH; +OMEP-173; -OMEP-218; -PHENYLEPHRINE 2.5% OPHTH SOL 2ML OS SCH
[2023-02-16 13:28] LABS: ALBUMIN 4.3 G/DL (3.2-5.2); ALKALINE PHOSPHATASE 86 U/L (46-116); ALT/SGPT 25 U/L (7.0-40); AST/SGOT 20 U/L (<34); BILIRUBIN,TOTAL 0.4 MG/DL (0.3-1.2); BLOOD UREA NITROGEN 12 MG/DL (9-23); CALCIUM LEVEL 9.5 MG/DL (8.5-10.1); CARBON DIOXIDE LEVEL 30 MMOL/L (20-31); CHLORIDE LEVEL 100 MMOL/L (98-107); CREATININE FOR GFR 0.67 MG/DL (0.55-1.30); GLOMERULAR FILTRATION RATE > 60.0 (>58); GLUCOSE, FASTING 88 MG/DL (60-100); SODIUM LEVEL 139 MMOL/L (136-145); THYROID STIMULATING HORMONE 1.873 uIU/ML (0.55-4.78); TOTAL PROTEIN 7.8 G/DL (5.7-8.2)
== END ==
LOC: M WUC 10:40
PROVIDERS: ATTEND Internal Medicine
DX: E03.9 Hypothyroidism, unspecified (principal)

== ENCOUNTER → 2023-06-09 | Outpatient (CLI) | payer BC, OTHER | LOC: M WHC 07:08 | PROVIDERS: ATTEND Internal Medicine | DX: Z12.31 Encounter for screening mammogram for malignant neoplasm of breast (principal) ==

== ENCOUNTER → 2023-12-25 | Outpatient (CLI) | payer BC, OTHER ==
[2023-12-25 17:01] LABS: ALBUMIN 4.1 G/DL (3.2-5.2); ALKALINE PHOSPHATASE 101 U/L (46-116); ALT/SGPT 34 U/L (7.0-40); AST/SGOT 16 U/L (<34); BILIRUBIN,TOTAL 0.3 MG/DL (0.3-1.2); BLOOD UREA NITROGEN 18 MG/DL (9-23); CALCIUM LEVEL 9.5 MG/DL (8.5-10.1); CARBON DIOXIDE LEVEL 31 MMOL/L (20-31); CHLORIDE LEVEL 103 MMOL/L (98-107); CHOLESTEROL LEVEL 182 MG/DL (<200); CHOLESTEROL RISK RATIO 3.08 (<5); CREATININE FOR GFR 0.58 MG/DL (0.55-1.30); GLOMERULAR FILTRATION RATE > 60.0 (>58); GLUCOSE, FASTING 115 MG/DL (60-100); HDL CHOLESTEROL 58.9 MG/DL (>40); LDL CHOLESTEROL 91.9 MG/DL (<100); NON-HDL-C 123.1 MG/DL; POTASSIUM SERUM 3.3 MMOL/L (3.5-5.1); SODIUM LEVEL 138 MMOL/L (136-145); TOTAL PROTEIN 7.1 G/DL (5.7-8.2); TRIGLYCERIDES LEVEL 156 MG/DL (<150)
[2023-12-25 17:03] LABS: THYROID STIMULATING HORMONE 2.291 uIU/ML (0.55-4.78)
== END ==
LOC: M WUC 13:24
PROVIDERS: ATTEND Internal Medicine
DX: E03.9 Hypothyroidism, unspecified (principal)

== ENCOUNTER → 2024-07-25 | Outpatient (CLI) | payer BC, OTHER ==
[2024-07-25 16:47] LABS: BASO # 0.1 10^3/uL (0.0-0.2); BASO % 0.6 % (0.0-1.0); EOS % 11.5 % (0.0-3.0); HEMATOCRIT 42.6 % (36.0-47.0); HEMOGLOBIN 13.9 g/dl (12.0-15.5); LYMPH # 2.1 10^3/uL (1.5-5.0); LYMPH % 23.9 % (24.0-44.0); MEAN CORPUSCULAR HEMOGLOBIN 29.3 pg (27.0-33.0); MEAN CORPUSCULAR HGB CONC 32.6 g/dl (32.0-36.5); MEAN CORPUSCULAR VOLUME 89.9 fl (80.0-96.0); MONO # 0.6 10^3/uL (0.0-0.8); MONO % 6.7 % (2.0-8.0); NEUTROPHILS % 57.2 % (36.0-66.0); PLATELET COUNT, AUTOMATED 211 10^3/uL (150-450); RED BLOOD COUNT 4.74 10^6/uL (4.00-5.40); WHITE BLOOD COUNT 8.8 10^3/uL (4.0-10.0)
[2024-07-25 17:19] LABS: ALBUMIN 4.3 G/DL (3.2-5.2); ALKALINE PHOSPHATASE 94 U/L (46-116); ALT/SGPT 27 U/L (7.0-40); AST/SGOT 14 U/L (<34); BILIRUBIN,TOTAL 0.4 MG/DL (0.3-1.2); BLOOD UREA NITROGEN 21 MG/DL (9-23); CALCIUM LEVEL 10.2 MG/DL (8.5-10.1); CARBON DIOXIDE LEVEL 30 MMOL/L (20-31); CHLORIDE LEVEL 104 MMOL/L (98-107); CHOLESTEROL LEVEL 179 MG/DL (<200); CHOLESTEROL RISK RATIO 2.54 (<5); CREATININE FOR GFR 0.67 MG/DL (0.55-1.30); GLOMERULAR FILTRATION RATE > 60.0 (>58); GLUCOSE, FASTING 83 MG/DL (60-100); HDL CHOLESTEROL 70.4 MG/DL (>40); LDL CHOLESTEROL 76.8 MG/DL (<100); NON-HDL-C 108.6 MG/DL; POTASSIUM SERUM 3.5 MMOL/L (3.5-5.1); SODIUM LEVEL 140 MMOL/L (136-145); TOTAL PROTEIN 7.7 G/DL (5.7-8.2); TRIGLYCERIDES LEVEL 159 MG/DL (<150)
[2024-07-25 17:21] LABS: THYROID STIMULATING HORMONE 6.079 uIU/ML (0.55-4.78)
== END ==
LOC: M WUC 14:47
PROVIDERS: ATTEND Internal Medicine
DX: E03.9 Hypothyroidism, unspecified (principal)